=== PATIENT | female | born 1950 | race Caucasian/White ===

== ENCOUNTER 2021-01-07 15:32 | Emergency (ER) | payer MEDICAID, MEDICARE ==
[~2021-01-07] VITALS: Ht 157.5 cm; Wt 100.0 kg
[2021-01-07 15:39] VITALS: BP 155/77
== END 2021-01-07 22:40 | disposition left against medical advice (07) ==
LOC: ER 15:32
DX: Z53.21 Procedure and treatment not carried out due to patient leaving prior to being seen by health care provider (principal)